=== PATIENT | male | born 1990 | race Caucasian/White ===

== ENCOUNTER 2017-11-22 19:39 | Emergency (ER) | payer OTHER ==
[~2017-11-22] VITALS: Ht 175.3 cm; Wt 104.3 kg
[~2017-11-22 19:39] MED LIST: BENZ100A PO; PROCODE120 PO; PSEU120ER PO
[2017-11-22] MEDS ORDERED: Naprosyn500 MG PO (21:24)
== END 2017-11-22 21:52 | disposition home or self-care (01) ==
LOC: ER 19:39
DX: M94.0 Chondrocostal junction syndrome [Tietze] (principal)
CPT/HCPCS: 71046; 93005; 93010; 99283